=== PATIENT | female | born 1990 | race American Indian/Alaskan Native ===

== ENCOUNTER 2017-12-18 11:52 | Emergency (ER) | payer OTHER ==
[2017-12-18 12:09] VITALS: RESP 18
[2017-12-18 13:18] LABS: SQUAMOUS EPITHIAL 7 /hpf (0-5); URINE BILIRUBIN NEGATIVE (NEGATIVE); URINE BLOOD NEGATIVE (NEGATIVE); URINE CLARITY Hazy (Clear); URINE COLOR Yellow (YELLOW); URINE GLUCOSE (UA) NORMAL (Normal); URINE LEUKOCYTE ESTERASE 2+ Leu/uL (Negative); URINE PROTEIN NEGATIVE (NEGATIVE)
--- NOTE | 2017-12-18 13:35 | C.PDOC ---
History Of Present Illness 27 year old female presents to the ED c/o lower back pain that started yesterday. 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 Patient reports pain worsens with movement. Patient denies injury, fall, trauma, weakness, numbness, saddle anesthesia, bowel/urinary incontinence. Time Seen by Provider: 12/18/17 12:16 Chief Complaint (Nursing): Back Pain History Per: Patient History/Exam Limitations: no limitations Onset/Duration Of Symptoms: Days Current Symptoms Are (Timing): Still Present Quality Of Discomfort: "Pain" Previous Symptoms: Back Pain Associated Symptoms: None Exacerbating Factor(s): Movement Recent travel outside of the [place]: No Additional History Per: Patient Past Medical History Reviewed: Historical Data, Nursing Documentation, Vital Signs Vital Signs: Last Vital Signs Temp 99.5 F 12/18/17 14:14 Pulse 84 12/18/17 14:14 Resp 18 12/18/17 14:14 BP 100/65 12/18/17 14:14 Pulse Ox 97 12/18/17 14:14 - Medical History PMH: No Chronic Diseases Surgical History: No Surg Hx Family History: States: Unknown Family Hx - Social History Hx Tobacco Use: No Hx Alcohol Use: No Hx Substance Use: No - Immunization History Hx Pneumococcal Vaccination: Yes Review Of Systems Constitutional: Negative for: Fever, Chills Cardiovascular: Negative for: Chest Pain Respiratory: Negative for: Shortness of Breath Gastrointestinal: Negative for: Abdominal Pain Genitourinary: Negative for: Incontinence Musculoskeletal: Positive for: Back Pain Neurological: Negative for: Weakness, Numbness Physical Exam - Physical Exam Appears: Non-toxic, No Acute Distress Skin: Normal Color, Warm, Dry Head: Atraumatic, Normacephalic Eye(s): bilateral: Normal Inspection Nose: No Discharge Oral Mucosa: Moist Neck: Normal ROM, Supple Gastrointestinal/Abdominal: Soft, No Tenderness, No Guarding, No Rebound Back: No Vertebral Tenderness, No Paraspinal Tenderness, Other (no reproducible pain with palpation ) Extremity: Normal ROM, No Tenderness, Capillary Refill (< 2 seconds), No Swelling Pulses: Left Dorsalis Pedis: Normal, Right Dorsalis Pedis: Normal Neurological/Psych: Oriented x3, Normal Motor, Normal Sensation Gait: Steady ED Course And Treatment O2 Sat by Pulse Oximetry: 100 (On RA) Pulse Ox Interpretation: Normal - Other Rad LS xray X-Ray: Viewed By Me, Read By Radiologist Interpretation: Accession No. : [id number]. Patient Name / ID : JOSEPHINE MCCAIN / [id number]. Exam Date : 12/18/2017 13:01:28 ( Approved ). Study Comment : Sex / Age : F / 27Y. Creator : Sterling Wen MD. Dictator : Sterling Wen MD. Pharmaceutical Sales Specialist : [employer] Messenger : Sterling Wen MD. Approver2 : Report Date : 12/18/2017 14:50:36. My Comment : . PROCEDURE: Radiographs of the Lumbar Spine. HISTORY: Low-back Pain. No history of recent/ related trauma provided. COMPARISON: No prior. FINDINGS: BONES: Normal alignment. No listhesis. No fracture. DISC SPACES: Unremarkable. OTHER FINDINGS: Constipation, fecal impaction identified. IMPRESSION: Unremarkable radiographs of the lumbar spine. Medical Decision Making Medical Decision Making: Impression: lower back pain Plan: * LS Spine X-Ray * UA * Macrobid 100 mg PO Disposition - Disposition Disposition: HOME/ ROUTINE Disposition Time: 13:33 Condition: STABLE Additional Instructions: Follow up with PMD within 2-3 days. Return to ED if feel worse. Prescriptions: Nitrofurantoin Macrocrystals [Macrobid] 1 cap PO BID #10 cap Ibuprofen [Motrin Tab] 600 mg PO Q8 #30 tab Instructions: Urinary Tract Infections in Adults, Low Back Pain (DC) Forms: [facility] (Turkmen) - Clinical Impression Clinical Impression: Low back pain, UTI (urinary tract infection) - PA / APPLIED PSYCHOLOGY CHAIR / Resident Statement MD/DO has reviewed & agrees with the documentation as recorded. - Scribe Statement The provider has reviewed the documentation as recorded by the Scribe Gilbert Onofre All medical record entries made by the Scribe were at my direction and personally dictated by me. I have reviewed the chart and agree that the record accurately reflects my personal performance of the history, physical exam, medical decision making, and the department course for this patient. I have also personally directed, reviewed, and agree with the discharge instructions and disposition.
[2017-12-18 14:14] VITALS: BP 100/65; PULSE 84; TEMP 99.5
--- NOTE | 2017-12-18 14:52 | RAD ---
PROCEDURE: Radiographs of the Lumbar Spine. HISTORY: Low-back Pain. No history of recent/ related trauma provided COMPARISON: No prior. FINDINGS: BONES: Normal alignment. No listhesis. No fracture. DISC SPACES: Unremarkable. OTHER FINDINGS: Constipation, fecal impaction identified. IMPRESSION: Unremarkable radiographs of the lumbar spine.
[2017-12-18 21:16] VITALS: O2SAT 100
== END 2017-12-18 14:15 | disposition home or self-care (01) ==
LOC: C.ER 11:52
DX: N39.0 Urinary tract infection, site not specified (principal); M54.5 Low back pain